=== PATIENT | female | born 1990 | race Caucasian/White ===

== ENCOUNTER 2017-02-09 22:10 | Emergency (ER) | payer SELFPAY ==
--- NOTE | ~2017-02-09 | EKG ---
PATIENT: ARACELI ARIZMENDI UNIT #: [id number] Ventricular Rate: 100 BPM Atrial Rate: 100 BPM P-R Interval: 150 ms QRS Duration: 68 ms Q-T Interval: 332 ms QTC Calculation(Bezet): 428 ms P [place]: 72 degrees Calculated R [place]: 56 degrees Calculated T [place]: 18 degrees Diagnosis Line: Normal sinus rhythm Diagnosis Line: Possible Left atrial enlargement Diagnosis Line: Possible LVH Diagnosis Line: Borderline ECG Diagnosis Line: When compared with ECG of 30-JAN-2016 15:24, Diagnosis Line: Questionable change in QRS duration Diagnosis Line: Diagnosis Line: Confirmed by GILBERTO PAT MD ([id number]) on Diagnosis Line: 02/10/2017 2:00:46 PM INTERPRETING : SONAL
--- NOTE | ~2017-02-09 | CR72 ---
[facility] RADIOLOGY TEXT RESULTS PATIENT: ARACELI ARIZMENDI LOCATION: [facility] : [id number] UNIT #: [id number] AGE: [address]: Ashlee Frost APRN SEX: F ORDER DR: [id number] [place], [place] [address] [id number] MR#: [id number] Acc #: [id number] NAME: ARACELI ARIZMENDI. : 1990 SEX: F STUDY DATE/TIME: 02/10/2017 0:45 UNIT: [facility] ROOM: STUDY DESCRIPTION: CR Chest Single View Portable Attending Physician: Ashlee Frost A.P.R.N. Ordering Physician: Ed Doc Siddharth Griffin Primary Care Physician: No Primary Care Physician MEDICAL IMAGING REPORT This report is preliminary unless electronic signature is present EXAM Chest x-ray, 02/10/2017. HISTORY 26-year-old female in the ED complaining of persistent chest pain and shortness of air present since 01/29/2017. TECHNIQUE AP portable upright chest x-ray. FINDINGS The lungs appear clear. No visible pulmonary infiltrate or pleural effusion. Heart size and pulmonary vascularity are within normal limits. Dense right lung base infiltrate present on previous examination of 01/30/2016 is no longer present. IMPRESSION Negative chest. Dictated by... Michael Clark M.D. THIS IS AN ELECTRONICALLY VERIFIED REPORT Michael Clark M.D. at 02/10/2017 9:53 PM RGW/udayw TD: 02/10/2017 12:55 JOB #: [id number] MEDICAL IMAGING REPORT [facility] RADIOLOGY TEXT RESULTS PATIENT: ARACELI ARIZMENDI LOCATION: [facility] : [id number] UNIT #: [id number] AGE: [address]: Ashlee Frost APRN SEX: F ORDER DR: Page 1 of 1 COPY
[~2017-02-09 22:10] MED LIST: ACETAMINOPHEN PO; BACTRIM DS TABL1 TA1 PO; BACTRIM DS TABL1 TAB PO; FLAGYL PO; FLEXERIL PO; HYDROCODON-ACE1 EAC7 PO; IBUPROFEN PO; LORTAB 10-5001 EACH PO; LORTAB 2.5/5001 TAB PO; METROGEL-VAGINA70 GM VG; MOBIC PO; NO MEDICATIONS; ORUDIS75 M1 PO; PHENERGAN PO; PYRIDIUM PO; ULTRAM PO; VOLTAREN75 MG PO
[2017-02-10 01:54] LABS: URINE SOURCE CLEAN CATCH
[2017-02-10 02:00] LABS: URINE APPEARANCE CLOUDY; URINE BILIRUBIN NEG (NEG); URINE BLOOD NEG (NEG); URINE COLOR DK YELLOW; URINE GLUCOSE NEG (NEG); URINE KETONE TRACE (NEG); URINE LEUKOCYTE ESTERASE TRACE (NEG); URINE NITRATE NEG (NEG); URINE PROTEIN NEG (NEG); URINE SPECIFIC GRAVITY 1.023 (1.003-1.035)
[2017-02-10 02:03] LABS: CULTURE INDICATED? YES; URINE BACTERIA AUWI 2+ (NEGATIVE); URINE SQUAMOUS EPITHELIAL CELL MOD /[HPF]
[2017-02-10 02:29] LABS: AMPHETAMINE POS (NEG); BARBITURATES NEG (NEG); BENZODIAZEPINES NEG (NEG); COCAINE NEG (NEG); MARIJUANA NEG (NEG); OPIATES POS (NEG); TRICYCLIC ANTIDEPRESSANTS NEG (NEG); U METHADONE NEG (NEG)
[2017-02-10 03:16] LABS: BASOPHIL# 0.1 X10e3 (0-0.3); BASOPHIL% 0.8 % (0-2.5); EOSINOPHIL# 0.1 X10e3 (0-0.7); EOSINOPHIL% 1.2 % (0.0-7.0); HEMATOCRIT 35.3 % (35.0-45.0); HEMOGLOBIN 11.2 gm/dL (12.0-16.0); LYMPHOCYTE% 19.9 % (17.0-45.0); MEAN CELL VOLUME 74.7 FL (83-96); MEAN CORPUSCULAR HEMOGLOBIN 23.6 PG (28-34); MEAN CORPUSCULAR HGB CONC 31.6 g/dL (30-36); MEAN PLATELET VOLUME 8.6 FL (6.5-11.5); MONOCYTE# 0.8 X10e3 (0-1.0); MONOCYTE% 8.3 % (3.0-12.0); NEUTROPHIL% 69.8 % (40-75); RED BLOOD COUNT 4.73 X10e (3.90-5.30); RED CELL DISTRIBUTION WIDTH 16.7 % (11.0-15.5)
[2017-02-10 03:26] LABS: POC - CKMB <1.0 ng/mL (0.0-7.9); POC - TROPONIN <0.05 ng/mL (<=0.05)
[2017-02-10 03:50] LABS: PLATELET COUNT 239 X10e3 (140-420)
[2017-02-10 03:51] LABS: DIFF IND NO
[2017-02-10 05:01] LABS: POC - CKMB <1.0 ng/mL (0.0-7.9); POC - TROPONIN <0.05 ng/mL (<=0.05)
[2017-02-10 05:03] LABS: INR 1.1; PARTIAL THROMBOPLASTIN TIME 28.5 SECONDS (23.5-31.3); PROTHROMBIN TIME (PATIENT) 11.1 SECONDS (9.6-11.5)
[2017-02-10 05:13] LABS: ALBUMIN SERUM 3.7 g/dL (3.5-5.0); BILIRUBIN, DIRECT 0.1 mg/dL (0.0-0.2); BILIRUBIN,INDIRECT 0.3 mg/dL (0.0-0.9); BILIRUBIN,TOTAL 0.4 mg/dL (0.2-2.0); BUN/CREATININE RATIO 17.14; CALCIUM SERUM 8.8 mg/dL (8.4-10.2); CREATININE SERUM 0.7 mg/dL (0.6-1.4); GLOM FILT RATE Estimated 118.7 mL/min (>60); POTASSIUM 3.7 mmol/L (3.5-5.1); PROTEIN TOTAL SERUM 7.3 g/dL (6.0-8.3)
== END 2017-02-10 06:15 | disposition home or self-care (01) ==
LOC: CED 22:10
PROVIDERS: Nurse Practitioner
DX: S20.219A Contusion of unspecified front wall of thorax, initial encounter (principal); N39.0 Urinary tract infection, site not specified; F17.210 Nicotine dependence, cigarettes, uncomplicated; V49.40XA Driver injured in collision with unspecified motor vehicles in traffic accident, initial encounter; Y92.410 Unspecified street and highway as the place of occurrence of the external cause
CPT/HCPCS: 36415; 71010; 80048; 80076; 80307; 81003; 82150; 82553; 83690; 84484; 84703; 85025; 85379; 85610; 85730; 87086; 93005; 99283